=== PATIENT | female | born 1990 | race Caucasian/White ===

== ENCOUNTER 2017-04-30 10:40 | Emergency (ER) | payer OTHER ==
[2017-04-30 10:44] VITALS: TEMP 98.2
--- NOTE | 2017-04-30 12:31 | EDPHY ---
H & P Stated Complaint: abdominal cramps and low bacl pain with BMs starting about 10 days ago, on Source: Patient, Family (Mother) Exam Limitations: No limitations - Personal History LMP (Females 10-55): IUD In Place Current Tetanus/Diphtheria Vaccine: Yes Current Tetanus Diphtheria and Acellular Pertussis (TDAP): Yes Tetanus Vaccine Date: < 10 years - Medical/Surgical History Hx Asthma: No Hx Chronic Respiratory Disease: No Hx Diabetes: No Hx Cardiac Disease: No Hx Renal Disease: No Hx Cirrhosis: No Hx Alcoholism: No Hx HIV/AIDS: No Hx Splenectomy or Spleen Trauma: No Other PMH: ADHD - Social History Smoking Status: Never smoked Time Seen by Provider: 04/30/17 12:32 HPI/ROS: HPI: This is a 26-year-old female who presents with Chief Complaint: abdominal cramps and low back pain with BMs starting about 10 days ago Location: pelvic Quality: Pain and cramping Duration: Ten days ago Signs and Symptoms: no fever, no nausea, no vomiting, no hematemesis, no blood in stool, no abdominal bloating, no diarrhea, no back pain, no urinary symptoms , no vaginal bleeding, + chronic normal physiological vaginal discharge Timing: Acute, intermittent episodes Severity: Moderate Context: Patient had an IUD placed by her OBGYN October 2016 (Mirena). She reports that after sex the IUD feels "weird" and she has cramping. She also has abnormal color urine. These symptoms last around one week and are intermittent. On , 3 days ago, she had sex and then had subjective blood in her urine. No dysuria. When she had a bowel movement today she felt "crampy" and nauseous, which concerned her. She has been unable to feel her IUD strings. Denies new sexual partner. Has not tried any rpxy-dkb-bxszgom pain medications today. Eating and drinking normally. Denies any urinary frequency, urinary burning, urinary hesitancy. No sexual trauma. Does not menstruate since having an IUD. Modifying Factors: None Comment: ROS: see HPI Constitutional: No fever, no chills, no weight loss Eyes: No blurred vision Respiratory: No shortness of breath, no cough Cardiovascular: No chest pain, no palpitations Gastrointestinal: No nausea, no vomiting, no diarrhea, no hematemesis, no blood in stool Genitourinary: No dysuria, no blood in urine Extremities: No myalgias, no edema Neurologic: No weakness, no numbness Skin: No rashes, no petechiae Hematologic: No bruising, no bleeding MEDICAL/SURGICAL/SOCIAL HISTORY: Medical history: Generally healthy. Does not take any regular medications. Surgical history: Denies Social history: Employed. CONSTITUTIONAL: Extremely well-appearing adult white female, awake and alert, no obvious distress HEENT: Atraumatic and normocephalic, PERRL, EOMI. Tympanic membranes clear. Oropharynx clear, no exudate and moist pink mucosa. Airway patent. No lymphadenopathy. No meningismus. Cardiovascular: Normal S1/S2, regular rate, regular rhythm, without murmur rub or gallop. PULMONARY/CHEST: Symmetrical and nontender. Clear to auscultation bilaterally. Good air movement. No accessory muscle usage. ABDOMEN: Soft, nondistended, nontender, no rebound, no guarding, no peritoneal signs, no masses or organomegaly. No CVAT. PELVIC: normal external genitalia, normal cervix, cervical os was closed, IUD strings x2 visualized; no cervical motion tenderness, no adnexal mass, scant white discharge has no odor, no bleeding. The exam was performed with a brand mgr. EXTREMITIES: 2/2 pulses, strength 5/5, no deformities, no clubbing, no cyanosis or edema. NEUROLOGICAL: no focal neuro deficits. GCS 15. SKIN: Warm and dry, no erythema. no rash. Good capillary refill. (Maribell Taylor) Constitutional: Initial Vital Signs Temperature (C) 36.8 C 04/30/17 10:43 Heart Rate 79 04/30/17 10:43 Respiratory Rate 18 04/30/17 10:43 Blood Pressure 106/74 04/30/17 10:43 O2 Sat (%) 98 04/30/17 10:43 O2 Delivery Mode Room Air Allergies/Adverse Reactions: No Known Allergies Allergy (Unverified 04/30/17 10:42) Home Medications: Medication Instructions Recorded Adderall 20 mg (*) 04/30/17 Metronidazole [Metrogel-Vaginal] 1 felipe VG HS 5 Days #5 gel.w.appl 04/30/17 Medical Decision Making - Diagnostics Imaging Results: Imaging Impressions Pelvic/Renal Ultrasound 04/30/17 12:33 Impression: 1. IUD in the uterus. Exact position is difficult to confirm. 2. Small collapsing simple cyst in the left ovary. Results discussed with Maribell Taylor at 1:40 pm. ED Course/Re-evaluation: I did not see this patient while she was in the emergency department. However her care was discussed with the PA while the patient was in the department. I agree with treatment plan and management (Tunde Anderson) Called by radiologist who advised that pelvic ultrasound shows IUD in place; small follicular cyst. No signs of ovarian torsion/ovarian cyst rupture Abdominal exam soft and nontender. NO concern for surgical abdomen. Pelvic exam shows to IUD strings are visualized. Scant vaginal discharge; vaginal swabs sent Urine negative Urinalysis shows; trace bacteria; hematuria; no indication of infection Wet prep shows bacteria and WBC; treat for bacterial vaginosis. 1450: Patient asking to eat at discharge. Denies any abdominal pain/nausea. Will discharge with OBGYN follow-up; may benefit from alternate method of contraception. This patient was seen under the supervision of my secondary supervising physician. I evaluated care for this patient independently. (Maribell Taylor) Differential Diagnosis: Differential diagnosis includes but is not limited to dyspareunia, IUD misplacement, bacterial vaginosis, gonorrhea, chlamydia, urinary tract infection. (Maribell Taylor) - Data Points Laboratory Results: 04/30/17 04/30/17 04/30/17 13:42 13:42 13:26 Urine Color YELLOW Urine Appearance HAZY Urine pH 7.0 (5.0-7.5) Ur Specific [place] 1.009 (1.002-1.030) Urine Protein NEGATIVE (NEGATIVE) Urine Ketones NEGATIVE (NEGATIVE) Urine Blood 3+ H (NEGATIVE) Urine Nitrate NEGATIVE (NEGATIVE) Urine Bilirubin NEGATIVE (NEGATIVE) Urine Urobilinogen NEGATIVE EU EU (0.2-1.0) Ur Leukocyte Esterase NEGATIVE (NEGATIVE) Urine RBC 50-182 /hpf H /hpf (0-3) Urine WBC 1-3 /hpf /hpf (0-3) Ur Epithelial Cells TRACE /lpf /lpf (NONE-1+) Urine Bacteria TRACE /hpf H /hpf (NONE SEEN) Urine Mucus TRACE /lpf /lpf (NONE-1+) Urine Glucose NEGATIVE (NEGATIVE) Trichomonas (Wet Prep) NO YEAST Heidi species DNA Pending C.trachomatis RNA (TMA) Pending Gardnerella DNA Probe Pending N.gonorrhoeae RNA (TMA) Pending Trichomonas DNA Probe Pending Medications Given: Discontinued Medications Ibuprofen (Motrin) 600 mg PO EDNOW ONE Stop: 04/30/17 12:34 Last Admin: 04/30/17 12:45 Dose: 600 mg Ondansetron HCl (Zofran Odt) 4 mg PO EDNOW ONE Stop: 04/30/17 12:33 Last Admin: 04/30/17 12:46 Dose: Not Given Departure - Departure Disposition: Home, Routine, Self-Care Clinical Impression: IUD surveillance, Dyspareunia, female, Bacterial vaginosis Hematuria Qualifiers: Hematuria type: other microscopic Qualified Code(s): R31.29 - Other microscopic hematuria Condition: Good Instructions: Hematuria (ED), Pelvic Rest (ED) Additional Instructions: Consume a minimum of 8-10 glasses of water or electrolyte fluid replacement drinks that include Gatorade, Powerade, Pedialyte. Please follow up with OBGYN to discuss removal of IUD and alternate means of contraception if discomfort persist. Please follow pelvic rest until all symptoms have resolved. Repeat urinalysis for interval change of hematuria in the next 1-2 weeks. Take Metrogel every night as directed x 5 days. Return to the Emergency Room if symptoms do not resolve in the next 48-72 hours , you spike a fever > 102 F, or experience intractable abdominal pain/nausea/ vomiting. Referrals: ROXANNA/DR TAHIR [Other] - As per Instructions Prescriptions: Metronidazole [Metrogel-Vaginal] 1 felipe VG HS 5 Days #5 gel.w.appl
[2017-04-30] MEDS ORDERED: ONDANSETRON DISINTEGRATING 4 MG TAB PO ONE (12:32)
[2017-04-30] MEDS ORDERED: IBUPROFEN 600 MG TAB PO ONE (12:33)
[2017-04-30 14:58] VITALS: RESP 16
[2017-04-30 15:25] VITALS: BP 114/68; PULSE 63; O2SAT 94
[2017-05-01 13:29] LABS: GC AMPLIFICATION GENPROBE NEGATIVE (NEGATIVE)
== END 2017-04-30 15:24 | disposition home or self-care (01) ==
DX: N76.0 Acute vaginitis (principal); R31.29 Other microscopic hematuria; N94.10 Unspecified dyspareunia; B96.89 Other specified bacterial agents as the cause of diseases classified elsewhere; Z30.431 Encounter for routine checking of intrauterine contraceptive device